=== PATIENT | female | born 1995 | race Caucasian/White ===

== ENCOUNTER 2018-10-31 00:09 | Emergency (ER) | payer BC ==
[~2018-10-31] VITALS: Ht 172.7 cm; Wt 63.6 kg
[2018-10-31 00:15] VITALS: BP 133/88; TEMP 98.7
[2018-10-31 01:09] VITALS: PULSE 80
[2018-10-31] MEDS ORDERED: NUVARING VAG RING VG (01:09)
== END 2018-10-31 01:11 | disposition home or self-care (01) ==
LOC: COL.ER 00:09
DX: S01.81XA Laceration without foreign body of other part of head, initial encounter (principal); W00.0XXA Fall on same level due to ice and snow, initial encounter; Y92.009 Unspecified place in unspecified non-institutional (private) residence as the place of occurrence of the external cause

== ENCOUNTER → 2018-11-04 | Emergency (ER) | payer BC ==
[~2018-11-04] MED LIST: NUVARING VAG RING VG
[2018-11-04 12:52] VITALS: BP 135/79; PULSE 97; TEMP 98.1
== END ==
LOC: COL.ER 12:49
DX: S01.81XD Laceration without foreign body of other part of head, subsequent encounter (principal); X58.XXXD Exposure to other specified factors, subsequent encounter

== ENCOUNTER 2019-01-08 14:45 | Outpatient (RCR) | payer BC | END 2019-02-03 11:01 | disposition home or self-care (01) | LOC: WSC 14:45 | DX: S39.012A Strain of muscle, fascia and tendon of lower back, initial encounter (principal) ==

== ENCOUNTER 2022-12-06 14:59 | Inpatient (IN) | payer BC ==
[2022-12-06] VITALS (20 sets, daily range): BP systolic 89–126; BP diastolic 50–80; PULSE 71–104; TEMP 98.3–98.8
[~2022-12-06] VITALS: Ht 172.7 cm; Wt 77.7 kg
[2022-12-06] MEDS ORDERED: PRENATAL TABLET PO (15:08)
--- NOTE | 2022-12-06 15:15 | NUR ---
1445- Pt arrives on unit ambulatory with spouse. Pt into bathroom, changes into gown, voids. 1451- Pt into bed. EFM and TOCO on and tracing. O2 sat on and tracing maternal HR. VSS. Pt states she has been having contractions since approx 0400 this morning. Went to office, Dr Do stripped membranes, was 4cm. Contractions have gotten stronger and closer together over the past couple hours. Pt states she has noticed spotting since exam in office. Denies LOF. +FM per Pt. Assessments completed. Pt tolerating UCs well while RN at bedside. Able to hold conversation while having them. 1515- SVE 5/80/-2, dark red/brown discharge noted on exam glove.
--- NOTE | 2022-12-06 15:30 | NUR ---
1530- EFM and TOCO off. Pt up to void. BB at bedside. Pt instucted on recommended use. Pt denies questions. Call light within reach, at bedside.
--- NOTE | 2022-12-06 16:30 | NUR ---
1608- Pt returned to bed from being on BB. Pt states UCs are getting stronger, still tolerating well. 1615- SVE /-2, dark red/brown discharge noted on exam glove, unchanged from previous exam.
--- NOTE | 2022-12-06 17:00 | NUR ---
1648- IV start without difficulty, labs obtained. 500ml LR bolus initiated.
[2022-12-06 17:15] LABS: BASO # 0.1 K/mm3 (0.0-0.2); BASO % 0.5 % (0.0-2.0); EOS # 0.1 K/mm3 (0.0-0.7); EOS % 1.1 % (0.0-4.0); GRAN # 9.9 K/mm3 (1.4-6.5); HEMOGLOBIN 12.7 g/dl (12.5-16.0); LYMPH # 1.3 K/mm3 (1.2-3.4); LYMPH % 10.4 % (20.0-51.0); MEAN CELL VOLUME 92 fl (80.0-100.0); MEAN CORPUSCULAR HEMOGLOBIN 32 pg (27-31); MEAN CORPUSCULAR HGB CONC 35 g/dl (33.0-37.0); MEAN PLATELET VOLUME 11.4 fl (7.4-10.4); MONO # 0.8 K/mm3 (0.1-0.6); MONO % 6.6 % (1.7-9.3); PLATELET COUNT 154 K/mm3 (130-400); RED BLOOD COUNT 3.92 M/mm3 (4.10-5.30); REDCELL DISTRIBUTION WIDTH-CV 12.5 % (11.5-14.5)
--- NOTE | 2022-12-06 17:15 | NUR ---
1715- Saline lock, Pt up to void and ambulate in hallway.
[2022-12-06 17:18] LABS: HEMATOCRIT 36.2 % (37.0-47.0)
--- NOTE | 2022-12-06 18:30 | NUR ---
1811- FHR subtle late decels noted with previous two contractions. GRANT Quintero to bedside, repositioned Pt and IVF bolus initiated. FHR decels resolve with position change.
--- NOTE | 2022-12-06 18:50 | NUR ---
1850- Second bag of LR hung and running at 125mls/hr. Pt requests to void and ambulate in hallway. EFM and TOCO off.
--- NOTE | 2022-12-06 20:19 | NUR ---
Anh APPLICATION SECURITY ARCHITECT into room for epidural placement. See Anesthesia record. Pt moves to sit on edge of bed. EFM tracing maternal heart rate while pt sitting on edge of bed. 2030 Test dose. 2039 To Wedge left.
--- NOTE | 2022-12-06 21:51 | NUR ---
Ephedrine 10mg slow IVP for low BP.
[2022-12-07] VITALS (14 sets, daily range): BP systolic 95–122; BP diastolic 52–64; PULSE 74–111; TEMP 97.4–98.4
--- NOTE | 2022-12-07 00:10 | NUR ---
Dr Do into room, pt set up for delivery. [address] after reduction of nuchal cord x 1.
--- NOTE | 2022-12-07 00:20 | NUR ---
Placenta delivers spont and intact. Lochia heavy with clots. Pitcin gtt started at bolus rate. Fundal massage by Dr Do briefly decreases lochia, then brisk again. Straight cath by Dr Hugo. 0028 Methergine 0.2mg to LAT.
--- NOTE | 2022-12-07 00:30 | NUR ---
0030 CYTOTEC 800MG NM GIVEN PER DR CASTILLO. VAG BLEEDING. SM TO MOD AT THIS TIME. IV INFUSING.
--- NOTE | 2022-12-07 02:00 | NUR ---
0200 SITTING UP IN BED. LEGS SL MOBILE. EPID CATH REMOVED. IV INFUSES AND TO INT. SCHEDULED MOTRIN AND TYLENOL GIVEN.
--- NOTE | 2022-12-07 03:00 | NUR ---
0300 LEGS STILL HEAVY AND UNABLE TO WALK. PERICARE DONE IN BED. PAD AND PANTY ON. TO SERRASTEADY WITH ASSIST X2 AND TO ROOM 208. SIMIN WELL. ORIENTED TO ROOM.
--- NOTE | 2022-12-07 11:16 | NUR ---
[employer] Worker offered congrats to patient and spouse and offered a brief blessing.
[2022-12-07] MEDS ORDERED: IBU800 M1 PO (11:27)
[2022-12-08] MEDS ORDERED: PERCOCET 325 MG1 TA2 PO (09:24)
[2022-12-08 12:01] VITALS: BP 107/57; PULSE 83; TEMP 98.5
== END 2022-12-08 16:20 | disposition home or self-care (01) | DRG 807 ==
LOC: LDRO 14:59 → LDR 16:26 → OB 12-07 03:00
PROVIDERS: ADMIT Student in an Organized Health Care Education/Training Program
PROC: 10E0XZZ Delivery of Products of Conception, External Approach (ICD-10-PCS; principal; 2022-12-07)
PROC: 0KQM0ZZ Repair Perineum Muscle, Open Approach (ICD-10-PCS; 2022-12-07)
DX: O69.81X0 Labor and delivery complicated by cord around neck, without compression, not applicable or unspecified (principal); Z37.0 Single live birth; O75.89 Other specified complications of labor and delivery; O70.1 Second degree perineal laceration during delivery; Z3A.40 40 weeks gestation of pregnancy; Z86.16 Personal history of COVID-19
CPT/HCPCS: J2210; J2405; J2590; J7120

== ENCOUNTER → 2022-12-12 | Outpatient (CLI) | payer BC ==
[~2022-12-12] MED LIST changes: +IBU800 M1 PO; +PERCOCET 325 MG1 TA2 PO; +PRENATAL TABLET PO
--- NOTE | 2022-12-12 15:30 | NUR ---
Pt, Vicki Meek, presents to walk-in clinic with 5 day old baby girl, Chelsea Meek and her , Shan. Chelsea was born on [birth year] and weighed 7# 9.7oz (3450 gms). She was seen two days ago by Dr. Varela and reportedly weighed 7#5oz. Chelsea is moderatly jaundice but has good energy and is having loose yellow stools and voids that are QS. Pt offers Chelsea the breast 10-12 times per day but because of shallow latch, nipple soreness, and engorgement she has pumped and bottle fed a few times in the last 24 hours. Pt is able to pump several ounces as well. Today Chelsea weighs 7# 5.2oz (3322 gms). Pt is advised on compression of areola and cross cradle hold to get Chelsea latched deeply. Pt states once Chelsea is latched it is not painful. Surfance abrassions are noted to nipples bilaterally, with the right a little worse than the left. Vicki and Chelsea are able to successfully nurse on both sides and after feeding Chelsea has a gain of 102 gms. She has a large loose yellow stool during the feeding as well. Pt advised on management of engorgement and pumping just a little prior to latching to soften the areola and mark the nipple a little. Nipple care also reviewed. POC: BF q 2-3 hours, using latch techniques and mild expression just prior to latching. F/U: Walk-in clinic in 5 days to check weight. Questions invited and answered.
== END ==
LOC: LAC 14:13
DX: Z39.1 Encounter for care and examination of lactating mother (principal); Z71.89 Other specified counseling

== ENCOUNTER → 2022-12-17 | Outpatient (CLI) | payer BC ==
--- NOTE | 2022-12-17 15:32 | NUR ---
Pt, Vicki Meek, presents to walk-in clinic with 10 day old baby girl, Chelsea Meek, to evaluate latch and milk transfer. Chelsea was born on [birth year] and weighed 7# 9.7oz (3450 gms). The family was in clinic 5 days ago because pt had sore nipples and was struggling with latching. At that time Chelsea weighed 7# 5.2oz (3322 gms). We were able to get Chelsea latched well but pt was unable to get a comfortable latch so she continued pumping and bottle feeding until about 36 hours ago. At that time the nipple soreness was better and she able to BF Chelsea. Today Chelsea weighs 7# 13oz (3542 gms). PT is able to latch Chelsea and after she has a weight gain of 58 gms (2oz). POC: Continue BF as diana. F/U: Walk in clinic as desired, as scheduled with physicians. Questions invited and answered.
== END ==
LOC: LAC 13:51
DX: Z39.1 Encounter for care and examination of lactating mother (principal); Z71.89 Other specified counseling

== ENCOUNTER → 2023-10-24 | Outpatient (CLI) | payer BC | LOC: COL.RAD 09:00 | DX: R63.4 Abnormal weight loss (principal) ==